=== PATIENT | female | born 1980 | race Caucasian/White ===

== ENCOUNTER 2017-01-04 12:24 | Emergency (ER) | payer SELFPAY ==
[2017-01-04] MEDS ORDERED: Sodium Chloride 0.9% 1,000 ML IV ONE (12:39)
[2017-01-04] MEDS ORDERED: diaZEpam 10 mg/2 ml Inj IVP STA (12:45)
[2017-01-04] MEDS ORDERED: Sodium Chloride 0.9% 1,000 ML ONE (12:53)
[2017-01-04 12:58] LABS: BASO % 0.3 % (0.0-2.0); EOS % 0.3 % (0.0-4.0); LYMPH # 2.7 K/uL (1.0-4.3); LYMPH % 20.9 % (20.0-40.0); MEAN CELL VOLUME 89.8 fL (81.0-99.0); MEAN CORPUSCULAR HEMOGLOBIN 30.4 pg (27.0-31.0); MEAN CORPUSCULAR HGB CONC 33.9 g/dL (33.0-37.0); MEAN PLATELET VOLUME 8.2 fL (7.2-11.7); MONO # 0.7 K/uL (0.0-0.8); MONO % 5.5 % (0.0-10.0); RED CELL DISTRIBUTION WIDTH 12.3 % (11.5-14.5); WHITE BLOOD COUNT 12.9 K/uL (4.8-10.8)
--- NOTE | 2017-01-04 13:03 | C.PDOC ---
History Of Present Illness 36 y/o female presents to ED with complaints of Anxiety since earlier today. Patient states she was at work and started to feels anxious came to ED for further evaluation. She is reporting some cramping in her fingers. Patient denies nausea, vomiting, diarrhea or any other complaints at this time. Time Seen by Provider: 01/04/17 12:39 Chief Complaint (Nursing): Anxiety History Per: Patient History/Exam Limitations: no limitations Onset/Duration Of Symptoms: Hrs Current Symptoms Are (Timing): Still Present Suicide/Self Injury Attempted (Context): None Modifying Factor(s): None Past Medical History Reviewed: Historical Data, Nursing Documentation, Vital Signs Vital Signs: Last Vital Signs Temp 98.4 F 01/04/17 15:26 Pulse 83 01/04/17 15:26 Resp 18 01/04/17 15:26 BP 129/89 01/04/17 15:26 Pulse Ox 99 01/04/17 15:26 - Medical History PMH: No Chronic Diseases Surgical History: No Surg Hx Family History: States: No Known Family Hx - Social History Hx Tobacco Use: Yes Hx Alcohol Use: Yes Hx Substance Use: No - Immunization History Hx Tetanus Toxoid Vaccination: No Hx Influenza Vaccination: No Hx Pneumococcal Vaccination: No Review Of Systems Constitutional: Negative for: Fever, Chills Cardiovascular: Negative for: Chest Pain, Palpitations, Paroxysmal Noc. Dyspnea Respiratory: Negative for: Cough, Shortness of Breath, SOB with Excertion Gastrointestinal: Negative for: Nausea, Vomiting, Abdominal Pain, Diarrhea, Constipation Skin: Negative for: Rash Neurological: Negative for: Weakness, Numbness Psych: Positive for: Anxiety. Negative for: Suicidal ideation Physical Exam - Physical Exam Appears: Well, Non-toxic, No Acute Distress, Other ((+)Anxious , (+)Tearful ) Skin: Warm, Dry, No Rash Head: Atraumatic, Normacephalic Eye(s): bilateral: Normal Inspection Oral Mucosa: Moist Neck: Normal ROM, Supple Chest: Symmetrical Cardiovascular: Rhythm Regular Respiratory: Normal Breath Sounds, No Rales, No Rhonchi, No Wheezing Gastrointestinal/Abdominal: Soft, No Tenderness, No Guarding, No Rebound Back: Normal Inspection, No CVA Tenderness Extremity: Normal ROM Neurological/Psych: Oriented x3, Normal Speech Gait: Steady ED Course And Treatment - Laboratory Results Result Diagrams: 01/04/17 12:51 01/04/17 12:51 O2 Sat by Pulse Oximetry: 100 (RA) Pulse Ox Interpretation: Normal Medical Decision Making Medical Decision Making: Patient has no homicidal or suicidal ideation. She does not want to speak to crisis and there is no acute indication. Patient has low mag and potassium. She feels better after IVF and will follow-up with PMD Disposition - Disposition Disposition: HOME/ ROUTINE Disposition Time: 15:14 Condition: GOOD Additional Instructions: Follow-up with PMD within 2 days. Return to ED if condition worsens. Diet balanced diet. Instructions: Potassium Content of Foods List (ED), Hypomagnesemia (ED) Forms: [facility] ([place]), Work Excuse - Clinical Impression Clinical Impression: Hypomagnesemia, Hypokalemia - Scribe Statement The provider has reviewed the documentation as recorded by the Karolyn Alvarado All medical record entries made by the Marinoibcristina were at my direction and personally dictated by me. I have reviewed the chart and agree that the record accurately reflects my personal performance of the history, physical exam, medical decision making, and the department course for this patient. I have also personally directed, reviewed, and agree with the discharge instructions and disposition.
[2017-01-04 13:40] LABS: ALB/GLOB RATIO 1.6 (1.0-2.1); ALKALINE PHOSPHATASE 48 U/L (38-126); ALT/SGPT 29 U/L (9-52); AST/SGOT 36 U/L (14-36); BILIRUBIN,TOTAL 1.2 mg/dL (0.2-1.3); BLOOD UREA NITROGEN 9 mg/dL (7-17); CALCIUM 8.2 mg/dl (8.6-10.4); CARBON DIOXIDE 22 mmol/L (22-30); CHLORIDE 96 mmol/L (98-107); GFR AFRICAN-AMERICAN > 60; GLUCOSE,RANDOM 97 mg/dL (65-105); MAGNESIUM 1.6 mg/dL (1.6-2.3); PHOSPHOROUS 1.5 mg/dL (2.5-4.5); POTASSIUM 3.5 mmol/L (3.6-5.2); SODIUM 131 mmol/L (132-148); TOTAL PROTEIN 7.1 g/dL (6.3-8.3)
[2017-01-04] MEDS ORDERED: diaZEpam 10 mg/2 ml Inj ONE (13:41)
[2017-01-04] MEDS ORDERED: Potassium Chloride 20 mEq ER Tab PO STA (14:04)
[2017-01-04] MEDS ORDERED: Potassium Chloride 20 mEq ER Tab PO ONE (14:19)
[2017-01-04 14:42] VITALS: RESP 18
[2017-01-04] MEDS ORDERED: Magnesium Oxide 400 mg Tab UD PO STA ×2 (15:13→15:26)
[2017-01-04 15:27] VITALS: BP 129/89; PULSE 83; TEMP 98.4
[2017-01-04 16:52] VITALS: O2SAT 100
== END 2017-01-04 15:39 | disposition home or self-care (01) ==
LOC: C.ER 12:24
DX: E83.42 Hypomagnesemia (principal); E87.6 Hypokalemia
CPT/HCPCS: 80053; 83735; 84100; 85025; 96361; 96374; 99284; J3360; J7040

== ENCOUNTER 2017-12-11 19:20 | Emergency (ER) | payer SELFPAY ==
--- NOTE | 2017-12-11 19:27 | C.PDOC ---
Time Seen by Provider: 12/11/17 19:26 Past Medical History - Social History Hx Tobacco Use: Yes Hx Alcohol Use: Yes Hx Substance Use: No - Immunization History Hx Tetanus Toxoid Vaccination: No Hx Influenza Vaccination: No Hx Pneumococcal Vaccination: No Disposition Counseled Patient/Family Regarding: Studies Performed, Diagnosis - Disposition Disposition Time: 19:27
[2017-12-11] MEDS ORDERED: Sodium Chloride 0.9% 1,000 ML IV ONE (19:38)
[2017-12-11 20:00] LABS: BASO % 0.4 % (0.0-2.0); EOS % 0.4 % (0.0-4.0); HEMOGLOBIN 13.5 g/dL (11.0-16.0); LYMPH # 3.3 K/uL (1.0-4.3); LYMPH % 26.1 % (20.0-40.0); MEAN CELL VOLUME 88.8 fL (81.0-99.0); MEAN CORPUSCULAR HEMOGLOBIN 30.7 pg (27.0-31.0); MEAN CORPUSCULAR HGB CONC 34.6 g/dL (33.0-37.0); MEAN PLATELET VOLUME 8.5 fL (7.2-11.7); MONO # 0.9 K/uL (0.0-0.8); MONO % 7.1 % (0.0-10.0); NEUT # 8.3 K/uL (1.8-7.0); RBC 4.41 Mil/uL (3.80-5.20); RED CELL DISTRIBUTION WIDTH 12.4 % (11.5-14.5); WHITE BLOOD COUNT 12.6 K/uL (4.8-10.8)
[2017-12-11 20:05] LABS: ALB/GLOB RATIO 1.5 (1.0-2.1); ALBUMIN 4.5 g/dL (3.5-5.0); ALT/SGPT 19 U/L (9-52); AST/SGOT 27 U/L (14-36); BLOOD UREA NITROGEN 10 mg/dL (7-17); CALCIUM 8.8 mg/dl (8.6-10.4); GFR NON-AFRICAN AMERICAN > 60
--- NOTE | 2017-12-11 21:57 | C.PDOC ---
History Of Present Illness 37 year old female presents to the emergency department with complaints of having palpitations and numbness to her hands and around her mouth today. Patient also reports that she is having spasms in her hands. She reports that these symptoms have occurred before, but denies chest pain and shortness of breath. She also reports that she was hyperventilating while driving her car. Time Seen by Provider: 12/11/17 19:26 Chief Complaint (Nursing): Palpitations History Per: Patient History/Exam Limitations: no limitations Onset/Duration Of Symptoms: Hrs Current Symptoms Are (Timing): Still Present Associated Symptoms: Other (Palpitations, numbness, spasms.) Past Medical History Reviewed: Historical Data, Nursing Documentation, Vital Signs Vital Signs: Last Vital Signs Temp 98.9 F 12/11/17 19:29 Pulse 100 H 12/11/17 19:29 Resp 30 H 12/11/17 19:29 BP 147/75 12/11/17 19:29 Pulse Ox 100 12/11/17 19:29 - Medical History PMH: No Chronic Diseases Surgical History: No Surg Hx Family History: States: No Known Family Hx - Social History Hx Tobacco Use: Yes Hx Alcohol Use: Yes Hx Substance Use: No - Immunization History Hx Tetanus Toxoid Vaccination: No Hx Influenza Vaccination: No Hx Pneumococcal Vaccination: No Review Of Systems Cardiovascular: Positive for: Palpitations. Negative for: Chest Pain Respiratory: Negative for: Shortness of Breath Neurological: Positive for: Numbness, Other (spasms to hands) Physical Exam - Physical Exam Appears: Non-toxic, No Acute Distress Skin: Warm, Dry Head: Atraumatic, Normacephalic Eye(s): bilateral: Normal Inspection, PERRL, EOMI Oral Mucosa: Moist Chest: Symmetrical, No Tenderness Cardiovascular: Rhythm Regular, No Murmur Respiratory: No Rales, No Rhonchi, No Wheezing Extremity: Normal ROM, Other (carpal pedal spasms to the hands bilaterally) Neurological/Psych: Oriented x3, Normal Speech, Normal Cognition, No Normal Sensation (perioral numbness) ED Course And Treatment - Laboratory Results Result Diagrams: 12/11/17 19:47 12/11/17 19:47 O2 Sat by Pulse Oximetry: 100 (RA) Pulse Ox Interpretation: Normal Progress Note: Plan: Xanax 0.25mg PO. NaCl IV Fluids. Beta-HCG. CMP. Magnesium. CBC. Patient slowly improving, no oxygen flowing, maintaining saturation at 100%. Disposition - Disposition Referrals: [facility] Dustin Vargas, [Non-Staff] - Disposition: HOME/ ROUTINE Disposition Time: 23:15 Condition: IMPROVED Additional Instructions: KEMI HERNANDEZ, thank you for letting us take care of you today. Your provider was Cordell Justice DO and you were treated for ANXIETY. The emergency medical care you received today was directed at your acute symptoms. If you were prescribed any medication, please fill it and take as directed. It may take several days for your symptoms to resolve. Return to the Emergency Department if your symptoms worsen, do not improve, or if you have any other problems. Please contact your doctor or call one of the physicians/clinics you have been referred to that are listed on the Patient Visit Information form that is included in your discharge packet. Bring any paperwork you were given at discharge with you along with any medications you are taking to your follow up visit. Our treatment cannot replace ongoing medical care by a primary care provider outside of the emergency department. Thank you for allowing the [facility] team to be part of your care today. Follow up with your primary care doctor in 2-3 days for re-evaluation and further management. Prescriptions: ALPRAZolam [Xanax] 0.25 mg PO Q8 PRN #10 tab PRN Reason: Anxiety Instructions: Anxiety, Adult (DC) Forms: [facility] (Lao) - Clinical Impression Clinical Impression: Palpitations, Anxiety - Scribe Statement The provider has reviewed the documentation as recorded by the Scribe (Max Peter) Provider Attestation: All medical record entries made by the Scribe were at my direction and personally dictated by me. I have reviewed the chart and agree that the record accurately reflects my personal performance of the history, physical exam, medical decision making, and the department course for this patient. I have also personally directed, reviewed, and agree with the discharge instructions and disposition.
[2017-12-11 22:43] VITALS: BP 124/78; PULSE 75; RESP 20; TEMP 98.5
[2017-12-11 23:17] VITALS: O2SAT 100
--- NOTE | 2017-12-13 12:50 | CARD ---
APPROVED REPORT Date of service: 12/11/2017 EKG Measurement Heart [id number] [id number] <Conclusion> Sinus rhythm with short WV Prolonged QT Abnormal ECG
== END 2017-12-11 23:32 | disposition home or self-care (01) ==
LOC: C.ER 19:20
DX: F41.9 Anxiety disorder, unspecified (principal); R00.2 Palpitations
CPT/HCPCS: 80053; 83735; 84702; 85025; 93005; 96360; 99285; J7030